=== PATIENT | female | born 1985 | race Caucasian/White ===

== ENCOUNTER 2018-02-11 10:54 | Observation (INO) | payer MEDICAID ==
[~2018-02-11] VITALS: Ht 162.6 cm; Wt 97.4 kg
[~2018-02-11 10:54] MED LIST: ACETAMINOPHEN/HYDROcodone 325 MG/10 MG TAB PO PRN; ACETAMINOPHEN/HYDROcodone 325 MG/5 MG TAB PO PRN; CEPH-460 PO; DOXY100C PO; IBUP1TAB7 PO; MAGNESIUM HYDROXIDE SUSP 30 ML CUP PO PRN; NALOXONE HCL 0.4 MG/ML AMP IV PUSH PRN; PROZ20CA11 PO; SODIUM CHLORIDE 0.9% FLUSH 10 ML FLUSH IV FLUSH PRN
[2018-02-11 11:15] VITALS: BP 110/83; PULSE 67; RESP 15; TEMP 96.5; O2SAT 98
--- NOTE | 2018-02-11 15:32 | RADRPT ---
EXAM DATE/TIME: 02/11/2018 12:03 This report includes an Addendum and supersedes previous reports for this exam. [facility] COMPARISON: CT ABDOMEN & PELVIS W CONTRAST, February 11, 2018, 7:14. INDICATIONS : Right upper quadrant pain with nausea and vomiting. DOSE: 4.4 mCi Tc99m Mebrofenin IV MEDICAL HISTORY : Aneurysm, abdominal. Gallstones. Smoker. SURGICAL HISTORY : Tubal ligation. Abdominal aortic aneurysm repair. ENCOUNTER: Initial ACUITY: 1 day PAIN SCALE: 8/10 LOCATION: Right upper quadrant TECHNIQUE: Following the intravenous administration of radiotracer, dynamic sequential images were performed wit h continuous acquisition. FINDINGS: HEPATIC KINETICS: There is prompt uptake of radiotracer in the liver. No focal defects are seen. There is normal rate of washout from the hepatic parenchyma. BILIARY CLEARANCE: Activity is first seen in the extrahepatic biliary system at 15 minutes. There is normal excretion i nto the small bowel. GALLBLADDER: The gallbladder is not identified during the 2 hours the examination. BILIARY ENTRIC REFLUX: None observed. CONCLUSION: 1. Nonvisualization of the gallbladder. In the appropriate clinical setting, this can suggest cholecy stitis. Delayed imaging to increase specificity could be performed if it is felt warranted. Charles Blanton MD on February 11, 2018 at 15:28 Board Certified Radiologist. This report was verified electronically. ADDENDUM: On the delayed images no definite gallbladder activity is seen which is most characteristic of cystic duct obstruction. Artem Garcia MD on February 12, 2018 at 11:20 Board Certified Radiologist. This report was verified electronically.
[2018-02-11 16:00] VITALS: BP 125/78; PULSE 63; RESP 16; TEMP 97.6; O2SAT 100
--- NOTE | 2018-02-11 17:25 | HHI.HP ---
[facility] Primary [facility] Physician No Primary Care Physician Admission Diagnosis Diagnoses: (1) Abdominal pain Diagnosis: Principal (2) Cholelithiasis Diagnosis: Principal Travel History International Travel<30 Days: No Contact w/Intl Traveler <30 Da: No Traveled to Known Affected Are: No History of Present Illness Mrs. Gudino is a 33-year-old female. She has no prior history of cholelithiasis or biliary colic. She came in to the ER rectal tone admitted today with severe right upper quadrant abdominal pain. Imaging showed evidence of cholelithiasis. No evidence of cholecystitis. HIDA scan obtained at this hospital shows evidence of a nonfilling gallbladder. However, when patient is seen upon arrival here she is symptom-free and she has not had recurrence of pain symptoms. Further imaging is pending. No fevers reported. No abdominal trauma. She is healthy at baseline without chronic medical conditions. Review of Systems Constitutional: DENIES: Fatigue, Fever, Chills Eyes: DENIES: Blurred vision, Diplopia, Eye inflammation, Eye pain Ears, nose, mouth, throat: DENIES: Tinnitus, Hearing loss, Vertigo, Nasal discharge Respiratory: DENIES: Cough, Wheezing, Shortness of breath Cardiovascular: DENIES: Chest pain, Palpitations, Syncope, Dyspnea on Exertion Gastrointestinal: COMPLAINS OF: Abdominal pain, DENIES: Black stools, Bloody stools Musculoskeletal: DENIES: Joint pain, Muscle aches, Stiffness, Joint Swelling Integumentary: DENIES: Abnormal pigmentation, Pruritus, Rash, Nail changes Hematologic/lymphatic: DENIES: Bruising, Lymphadenopathy Immunologic/allergic: DENIES: Eczema, Urticaria Neurologic: DENIES: Abnormal gait, Headache, Paresthesias Psychiatric: DENIES: Anxiety, Confusion, Hallucinations Past Family Social History Past Medical History None Past Surgical History None Reported Medications Reported Meds & Active Scripts Active No Active Prescriptions or Reported Medications Allergies: Coded Allergies: metoclopramide (Verified Allergy, Mild, HIVES, 02/11/18) Family History Appendectomy hypertension in father Social History No smoking, no alcohol abuse, no drug abuse Physical Exam Vital Signs Vital Signs Date Time Temp Pulse Resp B/P (MAP) Pulse Ox O2 Delivery O2 Flow Rate FiO2 02/11/18 16:00 97.6 63 16 125/78 (94) 100 02/11/18 11:15 96.5 67 15 110/83 (92) 98 Physical Exam GENERAL: NAD, A&Ox3 HEAD: Normocephalic. NECK: Supple, trachea midline. No lymphadenopathy. EYES: No scleral icterus. No injection or drainage. CARDIOVASCULAR: Regular rate and rhythm without murmurs, gallops, or rubs. RESPIRATORY: Breath sounds equal bilaterally. No accessory muscle use. GASTROINTESTINAL: Abdomen soft, non-tender, nondistended. MUSCULOSKELETAL: No cyanosis, or edema. SKIN: Warm and dry. NEURO: No focal neurological deficitis. Caprini VTE Risk Assessment Caprini VTE Risk Assessment: No/Low Risk (score <= 1) Caprini Risk Assessment Model Point Value = 1 Point Value = 2 Point Value = 3 Point Value = 5 Age 41-60 Minor surgery BMI > 25 kg/m2 Swollen legs Varicose veins or History of unexplained or recurrent spontaneous Oral contraceptives or hormone replacement Sepsis (< 1 month) Serious lung disease, including pneumonia (< 1 month) Abnormal pulmonary function Acute myocardial infarction Congestive heart failure (< 1 month) History of inflammatory bowel disease Medical patient at bed rest Age 61-74 Arthroscopic surgery Major open surgery (> 45 min) Laparoscopic surgery (> 45 min) Malignancy Confined to bed (> 72 hours) Immobilizing plaster cast Central venous access Age >= 75 History of VTE Family history of VTE Factor V Leiden Prothrombin [id number] Lupus anticoagulant Anticardiolipin antibodies Elevated serum homocysteine Heparin-induced thrombocytopenia Other congenital or acquired thrombophilia Stroke (< 1 month) Elective arthroplasty Hip, pelvis, or leg fracture Acute spinal cord injury (< 1 month) Prophylaxis Regimen Total Risk Factor Score Risk Level Prophylaxis Regimen 0-1 Low Early ambulation 2 Moderate Order ONE of the following: *Sequential Compression Device (SCD) *Heparin 5000 units SQ BID 3-4 Higher Order ONE of the following medications: *Heparin 5000 units SQ TID *Enoxaparin/Lovenox 40 mg SQ daily (WT < 150 kg, CrCl > 30 mL/min) *Enoxaparin/Lovenox 30 mg SQ daily (WT < 150 kg, CrCl > 10-29 mL/min) *Enoxaparin/Lovenox 30 mg SQ BID (WT < 150 kg, CrCl > 30 mL/min) AND/OR *Sequential Compression Device (SCD) 5 or more Highest Order ONE of the following medications: *Heparin 5000 units SQ TID (Preferred with Epidurals) *Enoxaparin/Lovenox 40 mg SQ daily (WT < 150 kg, CrCl > 30 mL/min) *Enoxaparin/Lovenox 30 mg SQ daily (WT < 150 kg, CrCl > 10-29 mL/min) *Enoxaparin/Lovenox 30 mg SQ BID (WT < 150 kg, CrCl > 30 mL/min) AND *Sequential Compression Device (SCD) Assessment and Plan Problem List: (1) Abdominal pain ICD Code: R10.9 - Unspecified abdominal pain (2) Cholelithiasis ICD Code: K80.20 - Calculus of gallbladder without cholecystitis without obstruction Assessment and Plan 33-year-old female admitted secondary to right upper quadrant abdominal pain with cholelithiasis Right upper quadrant abdominal pain Cholelithiasis HIDA scan shows a nonfilling of blood or Patient's clinical exam does not match HIDA scans findings Obtain MRCP Feed with clear liquids for now to test for recurrence of abdominal pain Nothing by mouth at midnight Possible need for surgery Consider surgical consult based on course overnight Consider repeat HIDA scan if patient is asymptomatic through the night DVT prophylaxis Charles Gatica MD Feb 11, 2018 17:25
[2018-02-11] MEDS ORDERED: NICOTINE 21 MG/24 HR PATCH T-DERMAL ONE (19:15)
[2018-02-11 20:00] VITALS: BP 113/66; PULSE 66; RESP 18; TEMP 97; O2SAT 97
[2018-02-11] MEDS: SODIUM CHLOR 0.9% 1000 ML INJ 1,000 ML IV SCH ×2 (20:57→21:03)
[2018-02-11] MEDS: ONDANSETRON HCL 4 MG/2 ML VIAL IVP PRN (20:57)
[2018-02-11] MEDS: SODIUM CHLORIDE 0.9% FLUSH 10 ML FLUSH IV FLUSH SCH (20:58)
[2018-02-11] MEDS ORDERED: MELATONIN 5 MG TAB PO ONE (23:30)
[2018-02-11] MEDS: REMOVE OLD PATCH T-DERMAL SCH (23:39)
[2018-02-12 00:03] VITALS: BP 103/62; PULSE 66; RESP 18; TEMP 96.6; O2SAT 97
[2018-02-12] MEDS: SODIUM CHLOR 0.9% 1000 ML INJ 1,000 ML IV SCH ×3 (05:23→23:39)
[2018-02-12 06:49] LABS: AUTOMATED NEUTROPHIL # 5.9 TH/MM3 (1.8-7.7); BASOPHIL % 0.5 % (0.0-2.0); EOSINOPHIL # 0.1 TH/MM3 (0-0.4); EOSINOPHIL % 0.7 % (0.0-4.0); HEMOGLOBIN 10.9 GM/DL (11.6-15.3); LYMPH % 26.6 % (9.0-44.0); LYMPHOCYTE # 2.3 TH/MM3 (1.0-4.8); MEAN CELL VOLUME 84.7 FL (80.0-100.0); MEAN CORPUSCULAR HEMOGLOBIN 27.2 PG (27.0-34.0); MEAN CORPUSCULAR HGB CONC 32.2 % (32.0-36.0); MONOCYTE # 0.5 TH/MM3 (0-0.9); NEUT % 66.2 % (16.0-70.0); PLATELET COUNT 215 TH/MM3 (150-450); RED BLOOD COUNT 4.02 MIL/MM3 (4.00-5.30); RED CELL DISTRIBUTION WIDTH 13.2 % (11.6-17.2); WHITE BLOOD COUNT 8.8 TH/MM3 (4.0-11.0)
[2018-02-12 07:03] LABS: CHLORIDE 108 MEQ/L (98-107); SODIUM (NA) 142 MEQ/L (136-145)
[2018-02-12 07:07] LABS: CALCIUM 8.2 MG/DL (8.5-10.1)
[2018-02-12 07:08] LABS: ALBUMIN 2.9 GM/DL (3.4-5.0); BICARBONATE 28.7 MEQ/L (21.0-32.0); BLOOD UREA NITROGEN 8 MG/DL (7-18); GLUCOSE,RANDOM 98 MG/DL (74-106)
[2018-02-12 07:10] LABS: AST (GOT) 10 U/L (15-37)
[2018-02-12 07:11] LABS: ALT (GPT) 13 U/L (10-53)
[2018-02-12 07:12] LABS: CREATININE 0.56 MG/DL (0.50-1.00); GLOMERULAR FILTRATION RATE 126 ML/MIN (>89); TOTAL BILIRUBIN ADULT 0.4 MG/DL (0.2-1.0)
[2018-02-12 07:14] LABS: TOTAL PROTEIN 6.4 GM/DL (6.4-8.2)
[2018-02-12 07:16] LABS: ALKALINE PHOSPHATASE 77 U/L (45-117)
[2018-02-12 07:50] VITALS: BP 112/61; PULSE 74; RESP 20; TEMP 96.7; O2SAT 97
[2018-02-12] MEDS: NICOTINE 21 MG/24 HR PATCH T-DERMAL SCH (08:38)
[2018-02-12] MEDS: SODIUM CHLORIDE 0.9% FLUSH 10 ML FLUSH IV FLUSH SCH ×2 (08:42→20:07)
[2018-02-12] MEDS ORDERED: GADODIAMIDE PF 287 MG/ML 20 ML VIAL (for RAD MRI) IVCONTRAST ONE (11:35)
[2018-02-12 11:50] VITALS: BP 121/76; PULSE 79; RESP 20; TEMP 97.2; O2SAT 98
--- NOTE | 2018-02-12 12:20 | RADRPT ---
EXAM DATE/TIME: 02/12/2018 11:07 [facility] COMPARISON: No previous studies available for comparison. INDICATIONS : Abdominal pain. Cholelithiasis. Liver lesions. CONTRAST: 20 cc Omniscan (gadodiamide) IV MEDICAL HISTORY : Aneurysm, intracranial. SURGICAL HISTORY : section. Tumor removed from spine. ENCOUNTER: Subsequent ACUITY: 2 day PAIN SCORE: 4/10 LOCATION: Right upper quadrant abdomen. TECHNIQUE: Multiplanar, multisequence magnetic resonance imaging of the abdomen was performed. High-resolution 3D dataset was utilized to reconstruct maximum-intensity projection (MIP) images. FINDINGS: There are numerous small gallstones within the gallbladder. A small amount pericholecystic fluid. No biliary ductal dilatation. No evidence for choledocholithiasis the pancreatic duct has normal caliber . 3 circumscribed lesions on seen in the liver. There is a 2 cm and 1 cm lesion near the dome of the li darryn and a 2.2 cm lesion in the inferior right lobe with the posterior aspect. These demonstrate incre ased T2 signal. Post contrast on delayed images there is some delayed fill-in of the lesions near the dome most characteristic of hemangiomata. No significant contrast enhancement within the lesion in t he inferior right lobe making this more characteristic of a hepatic cyst. Remainder of upper abdomen unremarkable. CONCLUSION: Numerous gallstones with some pericholecystic fluid. Cannot exclude an early cholecystitis. No biliar y ductal dilatation or choledocholithiasis. 2 cm and 1 cm hemangioma near the dome of the liver and probable 2.3 cm cyst in the inferior right lo be liver. Artem Garcia MD on February 12, 2018 at 12:12 Board Certified Radiologist. This report was verified electronically.
--- NOTE | 2018-02-12 14:46 | HHI.PR ---
Subjective Remarks Patient continues to be symptom free. Regular diet provided without symptoms. In the ER she had had a CT scan that showed cholelithiasis without evidence of cholecystitis. At that time she had had symptoms correlating with cholecystitis. HIDA scan yesterday showed no filling of the gallbladder. By this time patient has been symptom-free. She remains symptom-free. MRCP is obtained for further details and shows evidence of cholecystitis, the patient's physical exam does not match findings. Objective Vital Signs Date Time Temp Pulse Resp B/P (MAP) Pulse Ox O2 Delivery O2 Flow Rate FiO2 02/12/18 11:50 97.2 79 20 121/76 (91) 98 02/12/18 07:50 96.7 74 20 112/61 (78) 97 02/12/18 00:03 96.6 66 18 103/62 (76) 97 02/11/18 20:00 97.0 66 18 113/66 (82) 97 02/11/18 16:00 97.6 63 16 125/78 (94) 100 I/O 02/11/18 02/11/18 02/11/18 02/12/18 02/12/18 02/12/18 07:00 15:00 23:00 07:00 15:00 23:00 Intake Total 240 ml 893 ml Balance 240 ml 893 ml Intake Oral 240 ml 0 ml IV Total 893 ml # Voids 2 # Bowel Movements 0 Result Diagram: 02/12/18 0555 02/12/18 0555 Objective Remarks GENERAL: NAD, A&Ox3 HEAD: Normocephalic. NECK: Supple, trachea midline. No lymphadenopathy. EYES: No scleral icterus. No injection or drainage. CARDIOVASCULAR: Regular rate and rhythm without murmurs, gallops, or rubs. RESPIRATORY: Breath sounds equal bilaterally. No accessory muscle use. GASTROINTESTINAL: Abdomen soft, non-tender, nondistended. MUSCULOSKELETAL: No cyanosis, or edema. SKIN: Warm and dry. NEURO: No focal neurological deficitis. A/P Problem List: (1) Abdominal pain ICD Code: R10.9 - Unspecified abdominal pain (2) Cholelithiasis ICD Code: K80.20 - Calculus of gallbladder without cholecystitis without obstruction Assessment and Plan 33-year-old female admitted secondary to right upper quadrant abdominal pain with cholelithiasis Right upper quadrant abdominal pain Cholelithiasis Possible cholecystitis HIDA scan shows a nonfilling of the gallbladder MRCP shows pericolic fluid and possible cholecystitis Patient's clinical exam does not match HIDA scans findings or MRCP findings Surgical consult placed. Nothing by mouth at midnight DVT prophylaxis HILDAs Charles Andrade MD Feb 12, 2018 14:46
[2018-02-12 15:40] VITALS: BP 126/77; PULSE 82; RESP 20; TEMP 98.6; O2SAT 98
[2018-02-12] MEDS: ONDANSETRON HCL 4 MG/2 ML VIAL IVP PRN (17:43)
--- NOTE | 2018-02-12 18:37 | PD.CONS ---
cc: Mark Owens MD HPI Service General Surgery Consult Requested By Dr. Andrade Reason for Consult RUQ tenderness Primary Care Physician No Primary Care Physician History of Present Illness This is a 33 year old female with no significant past medical history who presented to the [facility] ED with complaints of sudden onset of abdominal pain. The patient states he awoke in her from sleep at about 0230 Saturday morning. The patient reports nausea with no vomiting. She reports fevers. At the [facility] ED she had a CT abd/pelvis which shows cholelithiasis with mild gallbladder wall thickening. She was transported to [facility] for further workup. A HIDA scan was obtained which shows nonvisualization of the gallbladder and delayed images show possible cystic duct obstruction. An MRCP was obtained which shows gallstones with pericholecystic fluid and no biliary duct dilation or choledocholithiasis. In [facility] her WBC was 13.1 and down to 8.8 today. Her liver enzymes remain normal. A General Surgery consultation has been requested. Review of Systems Constitutional: COMPLAINS OF: Change in appetite, DENIES: Fatigue Endocrine: DENIES: Polydipsia, Polyuria, Polyphagia Eyes: DENIES: Diplopia, Eye inflammation Ears, nose, mouth, throat: DENIES: Hearing loss Cardiovascular: DENIES: Palpitations, Syncope Gastrointestinal: COMPLAINS OF: Abdominal pain, Nausea, DENIES: Vomiting Genitourinary: DENIES: Urinary frequency Musculoskeletal: DENIES: Joint pain Integumentary: DENIES: Abnormal pigmentation Hematologic/lymphatic: DENIES: Bruising Immunologic/allergic: DENIES: Eczema Neurologic: DENIES: Headache, Localized weakness Psychiatric: DENIES: Mood changes, Depression, Hallucinations Past Family Social History Past Medical History None Past Surgical History Diagnostic laparoscopy to rule out endometriosis C section x2 Spinal surgery Reported Medications None Allergies: Coded Allergies: metoclopramide (Verified Allergy, Mild, HIVES, 02/13/18) Active Ordered Medications Current Medications Medications (Trade) Dose Ordered Sig/Freddie Route Start Time Stop Time Status Last Admin Sodium Chloride 1,000 ml @ 100 mls/hr Q10H IV 02/11/18 10:03 02/12/18 05:23 (NS Flush) 2 ml UNSCH PRN IV FLUSH 02/11/18 10:15 (NS Flush) 2 ml BID IV FLUSH 02/11/18 21:00 02/11/18 20:58 (Zofran Inj) 4 mg Q6H PRN IVP 02/11/18 10:15 02/12/18 17:43 ([place] 5-325 Mg) 1 tab Q4H PRN PO 02/11/18 10:15 ([place] 10-325 Mg) 1 tab Q4H PRN PO 02/11/18 10:15 (Narcan Inj) 0.4 mg UNSCH PRN IV PUSH 02/11/18 10:15 (Milk Of Magnlisa Liq) 30 ml Q12H PRN PO 02/11/18 10:15 (Habitrol 21 Mg Patch.24 Hr) 1 patch DAILY T-DERMAL 02/12/18 09:00 02/12/18 08:38 Miscellaneous Information 1 DAILY T-DERMAL 02/12/18 09:00 02/11/18 23:39 Family History Noncontributory Social History + tobacco use--- 1ppd for many years Denies ETOH use Denies illicit drug use Physical Exam Vital Signs Vital Signs Date Time Temp Pulse Resp B/P (MAP) Pulse Ox O2 Delivery O2 Flow Rate FiO2 02/12/18 15:40 98.6 82 20 126/77 (93) 98 02/12/18 11:50 97.2 79 20 121/76 (91) 98 02/12/18 07:50 96.7 74 20 112/61 (78) 97 02/12/18 00:03 96.6 66 18 103/62 (76) 97 02/11/18 20:00 97.0 66 18 113/66 (82) 97 Physical Exam GENERAL: Pleasant 33 year old female resting in bed in no acute distress. SKIN: Warm and dry. HEAD: Atraumatic. Normocephalic. EYES: Pupils equal and round. No scleral icterus. No injection or drainage. ENT: No nasal bleeding or discharge. Mucous membranes pink and moist. NECK: Trachea midline. . CARDIOVASCULAR: Regular rate and rhythm. RESPIRATORY: No accessory muscle use. Clear to auscultation. Breath sounds equal bilaterally. GASTROINTESTINAL: Abdomen soft, obese; non distended; RUQ tenderness with palpation. Small prior laparoscopic scar well healed. Well healed low transverse incision. MUSCULOSKELETAL: Extremities without clubbing, cyanosis, or edema. No obvious deformities. NEUROLOGICAL: Awake and alert. No obvious cranial nerve deficits. Motor grossly within normal limits. Five out of 5 muscle strength in the arms and legs. Normal speech. PSYCHIATRIC: Appropriate mood and affect; insight and judgment normal. Laboratory Laboratory Tests Test 02/12/18 05:55 White Blood Count 8.8 Red Blood Count 4.02 Hemoglobin 10.9 Hematocrit 34.0 Mean Corpuscular Volume 84.7 Mean Corpuscular Hemoglobin 27.2 Mean Corpuscular Hemoglobin Concent 32.2 Red Cell Distribution Width 13.2 Platelet Count 215 Mean Platelet Volume 10.0 Neutrophils (%) (Auto) 66.2 Lymphocytes (%) (Auto) 26.6 Monocytes (%) (Auto) 6.0 Eosinophils (%) (Auto) 0.7 Basophils (%) (Auto) 0.5 Neutrophils # (Auto) 5.9 Lymphocytes # (Auto) 2.3 Monocytes # (Auto) 0.5 Eosinophils # (Auto) 0.1 Basophils # (Auto) 0.0 CBC Comment DIFF FINAL Differential Comment Blood Urea Nitrogen 8 Creatinine 0.56 Random Glucose 98 Total Protein 6.4 Albumin 2.9 Calcium Level 8.2 Alkaline Phosphatase 77 Aspartate Amino Transf (AST/SGOT) 10 Alanine Aminotransferase (ALT/SGPT) 13 Total Bilirubin 0.4 Sodium Level 142 Potassium Level 3.8 Chloride Level 108 Carbon Dioxide Level 28.7 Anion Gap 5 Estimat Glomerular Filtration Rate 126 Lipase 106 Imaging Last 48 hours Impressions Cholangiopancreatography MRI 02/12/18 0000 Signed Impressions: Service Date/Time: Monday, February 12, 2018 11:07 - CONCLUSION: Numerous gallstones with some pericholecystic fluid. Cannot exclude an early cholecystitis. No biliary ductal dilatation or choledocholithiasis. 2 cm and 1 cm hemangioma near the dome of the liver and probable 2.3 cm cyst in the inferior right lobe liver. Artem Garcia MD Hepatobiliary Scan Nuclear Medicine 02/11/18 0000 Signed Impressions: Service Date/Time: Sunday, February 11, 2018 12:03 - CONCLUSION: 1. Nonvisualization of the gallbladder. In the appropriate clinical setting, this can suggest cholecystitis. Delayed imaging to increase specificity could be performed if it is felt warranted. Charles Blanton MD ADDENDUM: On the delayed images no definite gallbladder activity is seen which is most characteristic of cystic duct obstruction. Artem Garcia MD Assessment and Plan Assessment and Plan 33 year old female with abdominal pain; cholelithiasis -Plan for OR tomorrow -Obtain consents -Clear liquids tonight; NPO after MN -Zosyn -IVF -Procedure explained including risks and benefits -Thank you for this consult; We will continue to follow Discussed Condition With Dr. Roman Andrade Mrs. Gudino Attending Statement patient seen at bedside pt need lap cholecystectomy discussed with patient will plan for tomorrow am Attestation The exam, history, and the medical decision-making described in the above note were completed with the assistance of the mid-level provider. I reviewed and agree with the findings presented. I attest that I had a [id number] encounter with the patient on the same day, and personally performed and documented my assessment and findings in the medical record. Fior Bhandari/Embedded Firmware Engineer ARNP Feb 12, 2018 18:37 Mark Owens MD Feb 20, 2018 15:29
[2018-02-12] MEDS: PIPERACIL-TAZO 3.375 GM PREMIX 50 ML IV SCH (20:07)
[2018-02-12 20:11] VITALS: BP 123/75; PULSE 78; RESP 15; TEMP 98.3; O2SAT 99
[2018-02-12] MEDS ORDERED: MELATONIN 5 MG TAB PO PRN (23:00)
[2018-02-13] VITALS (9 sets, daily range): BP systolic 104–130; BP diastolic 59–97; PULSE 70–90; RESP 16–20; TEMP 96.3–98.6; O2SAT 95–100
[2018-02-13] MEDS: PIPERACIL-TAZO 3.375 GM PREMIX 50 ML IV SCH ×2 (03:32→12:17)
[2018-02-13] MEDS: ONDANSETRON HCL 4 MG/2 ML VIAL IVP PRN (05:45)
[2018-02-13] MEDS ORDERED: BUPIVACAINE/EPINEPHRINE 0.25% 50 ML VIAL ONE (05:53)
[2018-02-13] MEDS ORDERED: METOPROLOL TARTRATE 25 MG TAB PO PRN (06:15)
[2018-02-13] MEDS ORDERED: SODIUM CHLORID 0.9% 500 ML IV PRN (06:15)
[2018-02-13] MEDS ORDERED: CHLORHEXIDINE GLUCONATE 2 % 1 PACK (2 CLOTHS) TOPICAL PRN (06:15)
[2018-02-13] MEDS ORDERED: LACTATED RINGER'S 1000 ML IV PRN (06:15)
[2018-02-13] MEDS ORDERED: POVIDONE IODINE 5% (ANTISEPSIS KIT) 4 APPLICATIONS EACH NARE PRN (06:15)
--- NOTE | 2018-02-13 06:31 | HHI.PR ---
Immediate Post Op Note Procedure Date: Feb 13, 2018 Pre Op Diagnosis: acute cholecystitis Post Op Diagnosis: same Surgeon: Mark Owens MD Engagement Specialist(s): none Procedure: lap kameron Findings: inflamed gallbladder Complications: none Specimen(s) removed: gallbladder Estimated blood loss: 5cc Anesthesia: General Drains: None Patient to: PACU Patient Condition: Good Mark Owens MD Feb 13, 2018 06:31
[2018-02-13] MEDS ORDERED: MIDAZOLAM HCL 2 MG/2 ML VIAL ONE (07:37)
[2018-02-13] MEDS ORDERED: PROMETHAZINE INJ 25 MG/ML VIAL ONE (07:57)
--- NOTE | 2018-02-13 08:16 | MP ---
cc: Mark Owens MD DATE OF OPERATION: 02/13/2018 PREOPERATIVE DIAGNOSIS: Acute cholecystitis with cholelithiasis. POSTOPERATIVE DIAGNOSIS: Acute cholecystitis with cholelithiasis. PROCEDURE PERFORMED: Laparoscopic cholecystectomy. SURGEON: Mark Owens MD CHUTE PULLER: See OR sheet. ANESTHESIA: GETA. IV FLUIDS: See anesthesia sheet. ESTIMATED BLOOD LOSS: 5 mL. DRAINS: None. COMPLICATIONS: None. WOUND CLASSIFICATION: Clean, contaminated. SPECIMENS: Gallbladder. INDICATIONS: Patient is a 33-year-old female who presents with acute onset of right upper quadrant abdominal pain. Patient stated the pain started Saturday, continued to get worse and did not improve. She had persistent nausea as well and came to the emergency department for further evaluation including HIDA scan, ultrasound and MRCP showing pericholecystic fluid, thickened gallbladder and cholelithiasis with cholecystitis. Therefore, the decision was made for operative intervention including laparoscopic cholecystectomy. DETAILS OF THE PROCEDURE: The patient was taken to the operating room suite, placed in the supine position. She was prepped and draped in the usual sterile fashion after induction of general endotracheal anesthesia. A brief time-out done stating correct patient, procedure, and surgical site. We were all in agreement with this. Attention first directed to the umbilicus where a stab rody incision was made with an 11 blade after injection local anesthetic. A Visiport 5 mm port was used to enter the abdomen safely. On cursory inspection, no evidence of injury. Abdomen insufflated to 15 mmHg pneumoperitoneum. Three other ports were placed, one a 12 mm epigastric followed by two 5 mm right subcostal ports. Patient placed in reverse Trendelenburg and airplaned to the left. Gallbladder fundus was noted to be very distended. Some adhesions were taken down off the gallbladder. The gallbladder fundus was grasped and retracted cephalad. The cystic duct and cystic artery were dissected out with a monopolar hook electro Bovie cautery and [place]. The cystic artery with 2 clips placed proximal 5 mm and one distal and Endo Srinivas used to transect the cystic artery. The cystic duct was a little bit large therefore a 10 mm clip was placed and 2 proximal and 1 distal and Endo Srinivas used to transect this. The gallbladder was taken off the gallbladder fossa with Electro Bovie cautery. Hemostasis was obtained. The gallbladder was placed in the Endo Catch bag and removed from the epigastric port at the 12 mm. This was sent to pathology. On inspection, hemostasis was obtained and was hemostatic without biliary leaking as well. Next, pneumoperitoneum was removed. The clips were removed. The epigastric port was closed with a 0 Vicryl on a UR-6 and 4-0 Monocryl subcuticular sutures were done to all skin incisions. Sterile dressings were placed. The patient tolerated the procedure well. There were no intraoperative complications. All lap and instrument counts were correct at the end of the procedure. The patient was extubated and taken to the PACU. MD PATRIA Robles/HEIDI , 07:39 AM , 08:15 AM [email or web address]
[2018-02-13] MEDS ORDERED: MORPHINE SULFATE 4 MG/ML INJ ONE (08:24)
[2018-02-13] MEDS: REMOVE OLD PATCH T-DERMAL SCH (09:00)
[2018-02-13] MEDS ORDERED: DOCUSATE SODIUM 100 MG CAP PO SCH (09:00)
[2018-02-13] MEDS: SODIUM CHLORIDE 0.9% FLUSH 10 ML FLUSH IV FLUSH SCH (09:00)
[2018-02-13] MEDS: NICOTINE 21 MG/24 HR PATCH T-DERMAL SCH (09:27)
[2018-02-13] MEDS: SODIUM CHLOR 0.9% 1000 ML INJ 1,000 ML IV SCH (09:27)
[2018-02-13] MEDS: MORPHINE SULFATE 2 MG/ML INJ IV PUSH PRN ×2 (09:29→12:17)
[2018-02-13 11:47] LABS: AUTOMATED NEUTROPHIL # 13.8 TH/MM3 (1.8-7.7); BASOPHIL % 0.3 % (0.0-2.0); HEMATOCRIT 36.2 % (35.0-46.0); HEMOGLOBIN 11.9 GM/DL (11.6-15.3); LYMPH % 5.4 % (9.0-44.0); LYMPHOCYTE # 0.8 TH/MM3 (1.0-4.8); MEAN CELL VOLUME 84.8 FL (80.0-100.0); MEAN CORPUSCULAR HEMOGLOBIN 27.8 PG (27.0-34.0); MEAN CORPUSCULAR HGB CONC 32.7 % (32.0-36.0); MONO % 0.4 % (0.0-8.0); MONOCYTE # 0.1 TH/MM3 (0-0.9); NEUT % 93.9 % (16.0-70.0); PLATELET COUNT 220 TH/MM3 (150-450); RED BLOOD COUNT 4.27 MIL/MM3 (4.00-5.30); RED CELL DISTRIBUTION WIDTH 13.3 % (11.6-17.2); WHITE BLOOD COUNT 14.7 TH/MM3 (4.0-11.0)
[2018-02-13 12:07] LABS: CHLORIDE 107 MEQ/L (98-107); SODIUM (NA) 141 MEQ/L (136-145)
[2018-02-13 12:11] LABS: CALCIUM 8.2 MG/DL (8.5-10.1)
[2018-02-13 12:12] LABS: ALBUMIN 3.2 GM/DL (3.4-5.0); BICARBONATE 28.3 MEQ/L (21.0-32.0); BLOOD UREA NITROGEN 7 MG/DL (7-18); GLUCOSE,RANDOM 118 MG/DL (74-106)
[2018-02-13 13:33] LABS: ALKALINE PHOSPHATASE 87 U/L (45-117); ALT (GPT) 66 U/L (10-53); AST (GOT) 62 U/L (15-37); CREATININE 0.68 MG/DL (0.50-1.00); GLOMERULAR FILTRATION RATE 101 ML/MIN (>89); TOTAL BILIRUBIN ADULT 0.2 MG/DL (0.2-1.0); TOTAL PROTEIN 7.3 GM/DL (6.4-8.2)
--- NOTE | 2018-02-13 14:00 | EKG ---
Date Performed: 02/12/2018 Time Performed: 22:45:22 PTAGE: 33 years EKG: Sinus rhythm NORMAL ECG NO PREVIOUS TRACING DOCTOR: Delia Cortez Interpretating Date/Time 02/13/2018 13:53:21
[2018-02-13] MEDS ORDERED: HYDR-3516 PO (15:40)
[2018-02-13] MEDS ORDERED: PROM25TA10 PO (15:40)
--- NOTE | 2018-02-13 15:43 | HHI.DS ---
Discharge Summary Admission Date Feb 11, 2018 at 11:04 Discharge Date: Feb 13, 2018 Admitting Diagnosis (1) Abdominal pain ICD Code: R10.9 - Unspecified abdominal pain Diagnosis: Principal (2) Cholelithiasis ICD Code: K80.20 - Calculus of gallbladder without cholecystitis without obstruction Diagnosis: Principal (3) Cholecystitis ICD Code: K81.9 - Cholecystitis, unspecified Diagnosis: Principal Procedures Cholecystectomy Brief History - From Admission Mrs. Gudino is a 33-year-old female. She has no prior history of cholelithiasis or biliary colic. She came in to the ER rectal tone admitted today with severe right upper quadrant abdominal pain. Imaging showed evidence of cholelithiasis. No evidence of cholecystitis. HIDA scan obtained at this hospital shows evidence of a nonfilling gallbladder. However, when patient is seen upon arrival here she is symptom-free and she has not had recurrence of pain symptoms. Further imaging is pending. No fevers reported. No abdominal trauma. She is healthy at baseline without chronic medical conditions. CBC/BMP: 02/13/18 1110 02/13/18 1110 Significant Findings Laboratory Tests Test 02/12/18 05:55 02/13/18 11:10 Hemoglobin 10.9 GM/DL (11.6-15.3) Hematocrit 34.0 % (35.0-46.0) Albumin 2.9 GM/DL (3.4-5.0) 3.2 GM/DL (3.4-5.0) Calcium Level 8.2 MG/DL (8.5-10.1) 8.2 MG/DL (8.5-10.1) Aspartate Amino Transf (AST/SGOT) 10 U/L (15-37) 62 U/L (15-37) Chloride Level 108 MEQ/L (98-107) White Blood Count 14.7 TH/MM3 (4.0-11.0) Neutrophils (%) (Auto) 93.9 % (16.0-70.0) Lymphocytes (%) (Auto) 5.4 % (9.0-44.0) Neutrophils # (Auto) 13.8 TH/MM3 (1.8-7.7) Lymphocytes # (Auto) 0.8 TH/MM3 (1.0-4.8) Random Glucose 118 MG/DL (74-106) Alanine Aminotransferase (ALT/SGPT) 66 U/L (10-53) Hospital Course Mrs. Gudino is a 33 year old female. She was admitted with RUQ pain. Imaging showed evidence of cholecystitis. Cholecystecotmy was performed today and patient is doing well post op today, with PO pain control and tolerating a full diet. Medically stable for discharge home today with documented tolerance of food. Pt Condition on Discharge: Stable Discharge Disposition: Discharge Home Discharge Time: <= 30 minutes Discharge Instructions DIET: Follow Instructions for: As Tolerated, No Restrictions Additional Diet Instructions: Low fat diet Activities you can perform: Regular-No Restrictions Follow up Referrals: Surgical - 02/21/18 with Mark Owens MD Appt set for February 21 at 9:40AM New Medications: Promethazine (Phenergan) 25 Mg Tablet 25 MG PO Q6H PRN for NAUSEA OR VOMITING, #10 TAB 0 Refills Hydrocodone/Acetaminophen (Hydrocodone-Acetamin 5-325 mg) 5 Mg-325 Mg Tablet 1 TAB PO Q6H PRN for Pain, #20 TAB Charles Andrade MD Feb 13, 2018 15:43
== END 2018-02-13 17:45 | disposition home or self-care (01) ==
LOC: PHEDDLT 10:54 → PH3A 11:04
PROVIDERS: ADMIT Hospitalist; ATTEND Hospitalist
DX: K80.00 Calculus of gallbladder with acute cholecystitis without obstruction (principal); R11.0 Nausea; F17.210 Nicotine dependence, cigarettes, uncomplicated; D18.09 Hemangioma of other sites; R93.3 Abnormal findings on diagnostic imaging of other parts of digestive tract
CPT/HCPCS: 00790; 47562; 74177; 74183; 76377; 78226; 80053; 81001; 83690; 84703; 85025; 88304; 93005; 96361; 96365; 96374; 96375; 96376; 99285; A9537; A9579; G0378; J1885; J2250; J2270; J2405; J2543; J2550; J3010; J7030; J7120; Q9967